=== PATIENT | male | born 1935 | race Caucasian/White ===

== ENCOUNTER 2022-11-11 11:04 | Emergency (ER) | payer MEDICARE, OTHER, SELFPAY ==
--- NOTE | ~2022-11-11 | CT_ITS ---
EXAMINATION: CT HEAD W/O IV CONTRAST CT FACIAL BONES WITHOUT IV CONTRAST CT CERVICAL SPINE W/O IV CONTRAST CLINICAL INFORMATION: History of fall. Evaluate for bleed. Injury. Evaluate for fracture. COMPARISON: None TECHNIQUE: Head - Contiguous axial imaging of the head was performed from the skull base to the vertex without the administration of intravenous contrast, and axial images are reconstructed at 2 mm and 5 mm slice thickness. Cervical spine and facial bones - Volumetric, helical CT acquisitions of the cervical spine and facial bones obtained without contrast; in addition to the standard set of axial images, multiplanar reformatted images were provided in the coronal and sagittal imaging planes. This CT examination was performed using dose optimization techniques as appropriate, variously including the following: *Automated exposure control *Adjustment of mA and/or kV according to patient size (this includes techniques or standardized protocols for targeted exams where dose is matched to indication/reason for exam; i.e. extremities or head) *Use of iterative reconstruction technique DLP: 1347 mGy-cm (total) FINDINGS: HEAD: No evidence of intracranial hemorrhage, major vascular territory infarction, focal mass effect or midline shift. Muro to white matter differentiation is preserved. Gjer-dt-twjcgrnb parenchymal volume loss with commensurate prominence of ventricles and sulci. Mild patchy hypoattenuation within deep white matter is compatible with sequela of mild microangiopathy. There is atherosclerotic calcification of cavernous carotid arteries. No hydrocephalus or extra-axial fluid collections. There appears to be an old small lacunar infarct of the superior right cerebellar hemisphere. No evidence of calvarial fracture. Incidentally noted is opacification of some of the bilateral mastoid air cells. FACIAL BONES: The globes and orbital celis, including lamina papyracea, are intact. Prior ocular lens extractions. The orbital apex, optic canals, and retrobulbar fat planes are normal. The maxilla, mandible and temporomandibular joints are intact. Nasal bones, pterygoid plates and zygomatic arches have an intact appearance. The paranasal sinuses are well-aerated and the ostiomeatal units are patent. Incidentally noted is a left-sided nasal septal deviation with a septal spur that encroaches on the middle meatus. No air-fluid levels in the paranasal sinuses. CERVICAL SPINE: The skull base, C1 and C2 lateral masses and atlantodental articulation are intact. Calcium deposition (likely calcium pyrophosphate dihydrate crystal deposition) along the transverse ligament posterior to the dens. No dens fracture. The vertebral body heights and alignment are maintained. No fractures in the anterior or posterior elements. No prevertebral soft tissue edema or paraspinal hematoma. Multilevel, generally moderate discovertebral degenerative change of the cervical spine. Prior discectomy and anterior fusion at C5-C6 and C6-C7. The anterior fusion plate and fixation screws are well-positioned. No hardware loosening. Bone graft is well incorporated into the endplates at C5-C6 and C6-C7. Findings include multilevel uncovertebral joint hypertrophy with osteophytes causing severe bilateral neural foraminal stenosis at C3-C4. There is moderate bilateral neural foraminal stenosis at C4-C5. At C7-T1, neural foraminal stenosis is bjrjqwhk-tz-awcnen on the right and mild on the left. The partially visualized thyroid gland is mildly atrophied and heterogeneous. 1 cm hypodense nodules present in the left thyroid lobe. No thyroid imaging follow-up is recommended for incidentally detected nodule of this size. CT/CT cervical spine wo IV con IMPRESSION: * No intracranial hemorrhage or other acute intracranial pathology. * No fracture or malalignment in the degenerated cervical spine. No evidence of postoperative complications from remote anterior discectomy and anterior spinal fusion at C5-C7. No hardware loosening. * The horizontal and vertical buttresses of the face are intact. No significant imaging findings within the maxillofacial region.
[2022-11-11 11:07] VITALS: BP 153/57; PULSE 48; RESP 20; TEMP 36.7; O2SAT 96; BMI 22.0
--- NOTE | 2022-11-11 11:33 | PC.NURSE ---
PT IS AWAKE AND ALERT WITH BILATERAL KNEE ABRASIONS THAT ARE BEING CLEANED WITH NS. HE ALSO HAS A FEW FACIAL ABRASIONS. AWAITING CT SCAN
[2022-11-11] MEDS: Diphth,Pertus(ACell),Tet Adult 0.5 ML SYRINGE IM (12:09)
--- NOTE | 2022-11-11 13:15 | PC.NURSE ---
DSD IN PLACE, PT IS UP AND AMBULATORY IN ED. AWAITING PROVIDER TO REVIEW CT RESULTS
--- NOTE | 2022-11-24 19:05 | ED.FALL ---
HPI - Fall General Chief Complaint: Fall Stated Complaint: fall, face bruised Time Seen by Provider: 11/11/22 11:16 History of Present Illness HPI Narrative: Patient complains of trip and fall at home where he scraped his face his hands and his knees, it was a simple trip and fall, he did not faint or feel faint he had no loss of consciousness he has no headache he has no significant neck pain no numbness weakness or tingling no confusion no syncope no presyncope no dizziness prior or after the fall, he did scrape his hands and legs but is able to move them He is on blood thinner Eliquis Related Data Allergies Allergy/AdvReac Type Severity Reaction Status Date / Time No Known Allergies Allergy Verified 11/11/22 11:26 [facility] Past Medical History Source: nursing notes reviewed Social History Social History Advance Directives: Yes Advance Directives Information Provided: Yes Advance Directives on File: No Physical Exam Vital Signs: Vital Signs: Last Vital Signs Temp 98.1 F 11/11/22 11:07 Pulse 48 L 11/11/22 11:07 Resp 20 11/11/22 11:07 BP 153/57 H 11/11/22 11:07 Pulse Ox 96 11/11/22 11:07 O2 Del Method Room Air 11/11/22 11:07 BMI result Body Mass Index 22.0 General appearance comfortable cooperative no acute distress Head has no hematoma or abnormality on the scalp, there is no raccoon eyes no Nguyen signs no hemotympanum The face has multiple abrasions but no laceration that needs suturing no significant tenderness to the bones The eyes pupils equal round reactive to light extraocular motions are full and intact The neck was supple but there is very minor tenderness in the back of the neck Chest wall nontender Chest clear to auscultation bilateral Heart no murmur Abdomen soft nontender Extremities full range of motion x4 and there were superficial abrasions on the hands and the knees, but there was good range of motion in all joints any was able to ambulate and uses arms normally Interaction comprehension and expression were normal,, cranial nerves 2-12 intact as tested, motor 5/5 x4, sensation intact and symmetrical, finger to nose was normal Course Course Course Narrative: CT of head face and cervical spine did not show any bleed or facial fracture or cervical acute injury, patient was given a tetanus shot and was otherwise well appearing despite his abrasions which were cleaned and bandage and he was discharged Medications Administered Discontinued Medications Generic Name Dose Route Start Last Admin Trade Name Freq PRN Reason Stop Dose Admin Diphtheria/Tetanus/Acell Pertussis 0.5 ml 11/11/22 11:26 11/11/22 12:09 Diphth,Pertus(Acell),Tet Adult 0.5 Ml Syringe IM 11/11/22 11:27 0.5 ml .ONCE ONE Administration Discharge Plan Discharge Clinical Impression: Abrasion Patient Disposition: Home, Self-Care Additional Instructions: The CT scans of head neck and facial bones were all normal We gave you a tetanus shot The abrasions were not deep and did not require suturing You can take Eliquis normally, if any of the abrasions whose blood just apply pressure Return any time any worse condition or any concerns Interventions: ED Discharge Assessment Last Done: 11/11/22 13:31 Discharge Date/Time: 11/11/22 13:45
== END 2022-11-11 13:45 | disposition home or self-care (01) ==
PROVIDERS: Emergency Provider Emergency Medicine
DX: S00.81XA Abrasion of other part of head, initial encounter (principal); S80.212A Abrasion, left knee, initial encounter; S80.211A Abrasion, right knee, initial encounter; W01.0XXA Fall on same level from slipping, tripping and stumbling without subsequent striking against object, initial encounter; Y93.9 Activity, unspecified; Y92.039 Unspecified place in apartment as the place of occurrence of the external cause; Y99.9 Unspecified external cause status
CPT/HCPCS: 70450; 70486; 72125; 90471; 90715; 99282; 99284

== ENCOUNTER 2023-03-02 15:05 | Emergency (ER) | payer MEDICARE, OTHER, SELFPAY ==
--- NOTE | ~2023-03-02 | CT_ITS ---
EXAMINATION: CT ANGIOGRAM NECK WITH CONTRAST CT ANGIOGRAM BRAIN WITH CONTRAST CLINICAL INFORMATION: Unilateral neck pain. Concern for dissection. On Eliquis. COMPARISON: None. TECHNIQUE: Test bolus sequences followed by intravenous administration 100 mL of Omnipaque 350. Helical imaging was performed in the axial plane from the thoracic inlet to the skull vertex. Delayed postcontrast imaging of the head was also performed. The data was processed at the lead technologist in cytogenetics workstation for generation of MIP sequences. Angled MIPs and volume rendered reformatted images were also generated at an offline 3D workstation. Stenoses are assessed in accordance with NASCET criteria unless otherwise indicated. This CT examination was performed using dose optimization techniques as appropriate, variously including the following: *Automated exposure control *Adjustment of mA and/or kV according to patient size (this includes techniques or standardized protocols for targeted exams where dose is matched to indication/reason for exam; i.e. extremities or head) *Use of iterative reconstruction technique DLP: 2413 mGy-cm FINDINGS: Head CT: There is no intracranial hemorrhage, large acute infarction, or mass lesion. The ventricles are normal in size and configuration without evidence of hydrocephalus. There is no abnormal enhancement. A small chronic lacunar infarct is seen within the right cerebellum. Patchy hypoattenuation is seen in the white matter, typical of chronic microangiopathy. The dural venous sinuses are normally opacified. The visualized paranasal sinuses and mastoid air cells are clear. Neck CTA: The aortic arch demonstrates atheromatous calcifications but is patent. The great vessel origins are patent. Both common carotid arteries are patent. Mild atheromatous changes are seen at both carotid bifurcations without significant stenosis. Both cervical ICAs are patent. The bilateral vertebral arteries are patent. Head CTA: No large vessel occlusion is seen. There is mild atheromatous change along the intradural vertebral arteries without stenosis. Basilar artery is patent. There is a normal right posterior indicating artery which is patent. Both french pastry cook are patent. Intracranial ICAs are patent the right A1 segment is hypoplastic but patent. The ACAs and MCAs are patent with symmetric collaterals. No aneurysm is seen. Non-vascular findings: Anterior cervical discectomy and fusion changes are seen at C5-C7 with solid interbody fusion demonstrated. Multilevel degenerative spondylosis is also noted. CT/CT angio head neck IMPRESSION: CT HEAD: No intracranial hemorrhage or large acute infarction. 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 CTA NECK: No hemodynamically significant stenosis in the major arteries of the neck. No dissection. CTA HEAD: No large vessel occlusion or significant stenosis within the intracranial circulation.
--- NOTE | 2023-03-02 15:13 | ED.GENADULT ---
HPI - General Adult General Chief complaint: Neck Pain/Injury Stated complaint: neck pain Time Seen by Provider: 03/02/23 16:23 Source: patient Mode of arrival: ambulatory Limitations: no limitations History of Present Illness HPI narrative: Patient is an 87-year-old male who presents to the emergency department for evaluation of Atraumatic neck pain. He states he has been experiencing midline posterior neck pain for the past week. He has had a history of similar pain in the past, for which he saw a chiropractor with significant improvement. He saw a chiropractor yesterday, he was advised at that time he has a fusion of C5-C7, reports that this surgery occurred more than 5 years ago due to pain in the left arm he however was unaware that it was a fusion he states I thought they were just going to she part of it off . By this morning he noticed a slight increase in his pain it has become progressively worse throughout the day. Pain is made worse with movement of the head/neck. Has associated pain to the paraspinal region bilaterally however the right is worse than the left. He denies headache, fevers, chills, numbness tingling or weakness of the extremities, saddle anesthesia, bladder bowel incontinence, vision changes, chest pain, shortness of breath. Related Data Home Medications Medication Instructions Recorded Confirmed amlodipine 5 mg-benazepril 10 mg 1 cap PO DAILY 03/02/23 03/02/23 capsule apixaban 5 mg tablet (Eliquis) 5 mg PO BID 03/02/23 03/02/23 hydrochlorothiazide 25 mg tablet 25 mg PO DAILY 03/02/23 03/02/23 Previous Rx's Medication Instructions Recorded cyclobenzaprine 5 mg tablet 5 mg PO BEDTIME PRN muscle spasm 03/02/23 #10 tabs Allergies Allergy/AdvReac Type Severity Reaction Status Date / Time No Known Allergies Allergy Verified 11/11/22 11:26 Review of Systems Review of Systems: Yes all other systems are reviewed and are negative PMFSH Past Medical History Attestation statement: The following information was validated with the patient. Source: old records reviewed Social History Social History Alcohol intake: current Alcohol intake frequency: holidays/special occasions only Smoked in Last 30 Days: No Use of substances other than those prescribed or required for medical reasons: No Advance Directives: No Advance Directives Information Provided: Yes Physical Exam ED Vital Signs: Vital Signs - 24 hr 03/02/23 15:14 03/02/23 17:04 Temperature 98.2 F 98.1 F Pulse Rate 56 58 Respiratory Rate 18 16 Blood Pressure 136/62 149/71 H Pulse Oximetry 96 97 Oxygen Delivery Method Room Air Room Air BMI result Body Mass Index 23.4 Appearance: Alert.?Oriented to person, place and time. No acute distress.?Normal affect. Eyes: Pupils equal, round and reactive to light.? ENT: Pharynx normal.?? Neck: Normal inspection.? Neck supple.? Midline cervical spine tenderness? C4-C7 without palpable step-off or deformities. Palpable bilateral paraspinal muscle tenderness CVS: Heart sounds normal. Normal heart rate and rhythm.? Pulses normal.?? Respiratory: No respiratory distress.? Lung sounds clear to auscultation bilaterally?? Abdomen: Soft and non-tender. Normoactive bowel sounds. Skin: Skin warm and dry.? Normal skin color.? Extremities: No lower extremity edema.? Neuro: Moves all extremities spontaneously. Sensation intact bilaterally. CN II-XII intact. No focal neuro deficits. Ambulates with normal steady gait. Course Course Course Narrative: This is a rapid medical exam: Additional HPI, ROS, PE not included below will be deferred to primary provider. Patient is an 87-year-old male on Eliquis presenting to the emergency department with complaint of neck pain for one week. Went to the chiropractor yesterday and states pain is infinitely worse since. States chiro took x-rays prior to treatment, told patient C5, 6, 7 were fused. States he has pain bilaterally but pain is now worse on the right since yesterday's appointment. Denies saddle anesthesia, bowel or bladder incontinence. Denies any headaches or visual changes. States pain is worse with movement. Plan: CTA head and neck Reevaluation(s) Reevaluation #1: elevated troponin at 67.2, no chest pain, Dyspnea, shortness of breath, no anterior neck pain, plan to obtain EKG And delta troponin. Time: 17:48 Reevaluation #2: EKG reveals atrial fibrillation, no ST elevation, no ST depression, T-wave inversion in lead III and aVF., Pending delta troponin CT of the head with no acute intracranial abnormalities. CT angio of the neck without evidence of significant stenosis or dissection. there is notation of multi level degenerative changes, which is likely attributing to his pain. He expresses improvement in pain with cyclobenzaprine, but is not fully resolved. Time: 20:03 Reevaluation #3: Delta troponin of 47.9. I have reviewed this case with cardiology; Dr. El; clinically does not appear to be ACS, cardiology in agreement, advises outpatient follow-up. Discussed with patient worrisome signs and symptoms that would warrant re-evaluation in the emergency department. I will send prescription for the cyclobenzaprine to his pharmacy and recommend outpatient follow-up with his primary care provider. All questions were answered. Stable for discharge. Time: 20:50 Medications Administered Discontinued Medications Generic Name Dose Route Start Last Admin Trade Name Frejyacee PRN Reason Stop Dose Admin Cyclobenzaprine HCl 5 mg 03/02/23 17:25 03/02/23 18:05 Cyclobenzaprine Hcl 5 Mg Tablet PO 03/02/23 17:26 5 mg ONCE ONE Administration Iohexol 100 ml 03/02/23 18:19 03/02/23 18:20 Iohexol 350 Mg/Ml 100 Ml Infus..Btl IV 03/02/23 18:20 70 ml ONCE ONE Administration Medical Decision Making Medical Decision Making [facility] Narrative: patient is an 87-year-old male Past medical history of hypertension, atrial fibrillation on Eliquis, presents emergency department for evaluation of midline cervical spine pain with progressive worsening after chiropractic visit yesterday. no red flag signs; return at trauma, neurologic symptoms, anterior neck pain, personal history of cancer, recent unexplained weight loss, immune suppression, IVDA. plan to obtain serum labs, CT angio head and neck. Differential Diagnosis Differential Diagnoses: The differential diagnosis associated with the presentation includes ( Cervical spine fracture, compression fracture, Carotid artery dissection, less likely cervical cord compression/ diskitis/ spinal abscess/ malignancy. no anterior neck pain, less likely to be non spinal etiology such as angina/ACS.) Lab Data [facility] Lab Attestation statement: I reviewed the patient's lab results. CBC is without leukocytosis, there is a mild normocytic anemia and thrombocytopenia. CMP is overall unremarkable, elevated BUN at 24, Troponin 67.2, 03/02/23 16:47 03/02/23 16:47 Labs: Lab Results 09/21/23 09/21/23 Range/Units 16:47 20:08 WBC 7.0 (4.8-10.8) X10*3/uL RBC 4.36 L (4.60-5.80) X10*6/uL Hgb 13.3 L (14.0-18.0) g/dl Hct 39.9 L (42.0-52.0) % MCV 91.5 (80.0-98.0) fL MCH 30.5 (27.0-33.0) pg MCHC 33.3 (31.0-36.0) g/dl RDW 14.7 (11.0-16.0) % Plt Count 155 L (160-400) X10*3/uL MPV 11.0 (9.4-12.4) fL Immature Gran % (Auto) 0.4 (0.0-0.4) % Neut % (Auto) 80.2 H (45-73) % Lymph % (Auto) 8.5 L (20-40) % Stanton % (Auto) 8.8 (2-11) % Eos % (Auto) 1.7 (0-4) % Baso % (Auto) 0.4 (0-2) % Lymph # (Auto) 0.6 L (1.2-4.9) X10*3/uL Stanton # (Auto) 0.6 (0.1-1.2) X10*3/uL Eos # (Auto) 0.1 (0.0-0.4) X10*3/uL Baso # (Auto) 0.0 (0.0-0.2) X10*3/uL Abs Immat Gran (auto) 0.03 (0.00-0.03) X10*3/uL Absolute Neuts (auto) 5.6 (2.0-8.3) x10*3/uL Absolute Nucleated RBC 0.000 (0.0-0.012) X10*3/uL Nucleated RBC % (auto) 0.0 (0.0-0.2) /100WBC PT 15.7 H (11.1-13.3) SEC INR 1.3 H (0.9-1.1) Sodium 140 (135-145) mmol/L Potassium 4.7 (3.3-5.1) mmol/L Chloride 102 (96-108) mmol/L Carbon Dioxide 28 (22-29) mmol/L Anion Gap 15 (12-20) BUN 24 H (9-16) mg/dL Creatinine 1.18 (0.5-1.4) mg/dL Estim Creat Clear Calc 43.2 Estimated GFR 58 Random Glucose 106 (60-115) mg/dL Calcium 9.7 (8.4-10.2) mg/dL Magnesium 2.2 (1.6-2.6) mg/dL Total Bilirubin 0.9 (0.0-1.0) mg/dL AST 36 (5-37) U/L ALT 24 (0-40) U/L Alkaline Phosphatase 97 (39-117) U/L Troponin I High Sens 67.2 H 47.9 H (<3.5-35.0) ng/L Total Protein 6.9 (6.5-8.0) g/dL Albumin 4.1 (3.5-5.0) g/dL Lipase 12 (8-78) U/L Independent Interpretation I performed an independent interpretation of an: EKG ( as per course narrative) Radiology Impression Discussion of test interpretation with radiology: I have reviewed the radiologist's reading. Radiologist Impression: CT/CT angio head neck IMPRESSION: CT HEAD: No intracranial hemorrhage or large acute infarction. 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 CTA NECK: No hemodynamically significant stenosis in the major arteries of the neck. No dissection. CTA HEAD: No large vessel occlusion or significant stenosis within the intracranial circulation. Discharge Plan Discharge Clinical Impression: Cervical spondylosis, Elevated troponin level Patient Disposition: Home, Self-Care Instructions: Neck Pain (ED) Additional Instructions: As discussed, the CT scan does show evidence of arthritis type changes in your neck. It is important that you follow-up with your primary care provider. You can take Tylenol 500 mg, 2 tablets (1,000mg) every 4-6 hours as needed for pain, but not to exceed 3 doses daily (3,000mg). I have sent a prescription for cyclobenzaprine, the muscle relaxer to your pharmacy as well. This medication can make you drowsy. You should not drive while taking this medication.? As discussed, your blood markers; Troponin which can detect damage to the heart muscle were elevated today. I discussed this with our construction carpenters helper in review of your EKG in the reason that you came to the emergency department today. At this time it does not appear as though you are having any heart attack, or that your current pain is related to your heart. Please contact your construction carpenters helper to arrange for a follow-up visit for further evaluation. If you are unable to make contact with their office I have also provided the contact information for our construction carpenters helper office. If you develop chest pain, shortness of breath, difficulty breathing, or any new/ worsening symptoms or concerns you may return back to the emergency department. Prescriptions: New cyclobenzaprine 5 mg tablet 5 mg PO BEDTIME PRN (Reason: muscle spasm) Qty: 10 0RF No Action amlodipine-benazepril 5-10 mg capsule 1 cap PO DAILY hydrochlorothiazide 25 mg tablet 25 mg PO DAILY Eliquis 5 mg tablet 5 mg PO BID Referrals: Luis El MD [Physician] -
[2023-03-02 15:14] VITALS: BP 136/62; PULSE 56; RESP 18; TEMP 36.8; O2SAT 96; BMI 23.4
[2023-03-02 16:52] LABS: MANUAL DIFF FLAG NO
[2023-03-02 16:53] LABS: Basophils Percent Auto 0.4 % (0-2); Eosinophils Absolute Auto 0.1 X10*3/uL (0.0-0.4); Eosinophils Percent Auto 1.7 % (0-4); Hematocrit 39.9 % (42.0-52.0); Hemoglobin 13.3 g/dl (14.0-18.0); Imm Gran Abs Auto 0.03 X10*3/uL (0.00-0.03); Imm Gran Pct Auto 0.4 % (0.0-0.4); Lymphocytes Absolute Auto 0.6 X10*3/uL (1.2-4.9); Lymphocytes Percent Auto 8.5 % (20-40); Mean Corpuscular HGB Conc 33.3 g/dl (31.0-36.0); Mean Corpuscular Hemoglobin 30.5 pg (27.0-33.0); Mean Corpuscular Volume 91.5 fL (80.0-98.0); Monocytes Absolute Auto 0.6 X10*3/uL (0.1-1.2); Monocytes Percent Auto 8.8 % (2-11); Neutrophils Absolute Auto 5.6 x10*3/uL (2.0-8.3); Neutrophils Percent Auto 80.2 % (45-73); Platelet Count 155 X10*3/uL (160-400); Red Blood Count 4.36 X10*6/uL (4.60-5.80); Red Cell Distribution Width 14.7 % (11.0-16.0)
--- NOTE | 2023-03-02 16:53 | PC.NURSE ---
pt reports taking 2 Tylenol (pt unsure of dose) at 2pm for 10/10 pain, now at 8/10 only reaching 10/10 with any turn of the head.
[2023-03-02 17:04] VITALS: BP 149/71; PULSE 58; RESP 16; TEMP 36.7; O2SAT 97
[2023-03-02 17:06] LABS: Alanine Aminotransferase 24 U/L (0-40); Albumin Level 4.1 g/dL (3.5-5.0); Alkaline Phosphatase 97 U/L (39-117); Anion Gap 15 (12-20); Aspartate Amino Transferase 36 U/L (5-37); Bilirubin Total 0.9 mg/dL (0.0-1.0); Blood Urea Nitrogen 24 mg/dL (9-16); Calcium 9.7 mg/dL (8.4-10.2); Carbon Dioxide 28 mmol/L (22-29); Chloride 102 mmol/L (96-108); Creatinine Clr Calc Pharmacy 43.2; Estimated Glomerular Filt Rate 58; Glucose Random 106 mg/dL (60-115); Lipase 12 U/L (8-78); Magnesium 2.2 mg/dL (1.6-2.6); Potassium 4.7 mmol/L (3.3-5.1); Sodium 140 mmol/L (135-145); Total Protein 6.9 g/dL (6.5-8.0)
[2023-03-02 17:13] LABS: Troponin-I High Sensitivity 67.2 ng/L (<3.5-35.0)
[2023-03-02 17:14] LABS: INTERNATIONAL NORM RATIO 1.3 (0.9-1.1); Prothrombin Time 15.7 SEC (11.1-13.3)
--- NOTE | 2023-03-02 17:48 | ECG_ITS ---
Test Reason : NECK PAIN Blood Pressure : / mmHG Vent. Rate : 050 BPM Atrial Rate : 000 BPM P-R Int : 000 ms QRS Dur : 096 ms QT Int : 470 ms P-R-T Axes : 000 092 -21 degrees QTc Int : 428 ms Atrial fibrillation with slow ventricular response Rightward axis Incomplete right bundle branch block Anteroseptal infarct , age undetermined T-wave inversion in Inferior leads Abnormal ECG No previous ECGs available Referred By: Niecy Marquez Electronically Signed By:SHELLIE BONDS
[2023-03-02] MEDS: Cyclobenzaprine HCl 5 MG TABLET PO (18:05)
[2023-03-02] MEDS: iohexoL 350 MG/ML 100 ML INFUS..BTL IV (18:20)
[2023-03-02 20:38] LABS: Troponin-I High Sensitivity 47.9 ng/L (<3.5-35.0)
[2023-03-02 21:44] VITALS: BP 152/76; PULSE 66; RESP 17; O2SAT 98
== END 2023-03-02 21:45 | disposition home or self-care (01) ==
PROVIDERS: Nurse Practitioner Family; Emergency Provider Emergency Medicine
DX: M47.812 Spondylosis without myelopathy or radiculopathy, cervical region (principal); R77.8 Other specified abnormalities of plasma proteins; I10 Essential (primary) hypertension; I48.91 Unspecified atrial fibrillation; Z79.899 Other long term (current) drug therapy; Z79.01 Long term (current) use of anticoagulants
CPT/HCPCS: 36415; 70496; 70498; 80053; 83690; 83735; 84484; 85025; 85610; 93005; 99284; 99285; Q9967

== ENCOUNTER 2023-09-30 14:10 | Inpatient (IN) | payer MEDICARE, SELFPAY ==
[2023-09-30] VITALS (7 sets, daily range): BP systolic 101–117; BP diastolic 57–65; PULSE 60; RESP 15–26; TEMP 36.3–36.5; O2SAT 93–96; BMI 22.0; BMI 21.4
--- NOTE | ~2023-09-30 | XR_ITS ---
EXAMINATION: XR CHEST CLINICAL INFORMATION: Shortness of breath COMPARISON: None available. TECHNIQUE: Frontal view of the chest was obtained. FINDINGS: The heart and mediastinal borders are normal. Consolidation. No pleural effusion. No acute osseous abnormality. XR/XR chest 1V IMPRESSION: Unremarkable examination.
--- NOTE | 2023-09-30 14:52 | ECG_ITS ---
Test Reason : DYSPENA Blood Pressure : / mmHG Vent. Rate : 059 BPM Atrial Rate : 267 BPM P-R Int : 000 ms QRS Dur : 142 ms QT Int : 470 ms P-R-T Axes : 000 -45 -88 degrees QTc Int : 465 ms Ventricular-paced rhythm underlying atrial fibrillation vs flutter Abnormal ECG When compared with ECG of 02-MAR-2023 18:44, rhythm change Referred By: Sam Link Electronically Signed By:ANNABELLA LEO
--- NOTE | 2023-09-30 14:56 | ED.SOB ---
HPI - SOB/Dyspnea General Chief Complaint: Dyspnea Stated Complaint: Low oxygen levels Time Seen by Provider: 09/30/23 14:42 Source: patient and family (Spouse) Mode of arrival: ambulatory Limitations: no limitations History of Present Illness HPI Narrative: 87 year old male brought in by his family for SOB and becoming hypoxic with ambulation to 85% on air. Pertinent history of smoking quit 1983, history of COPD recently was admitted to [facility] for acute hypoxic respiratory failure, and viral respiratory infection (H MPV), AFib on Eliquis, HTN, V-tach, patient recently had AICD placed at [facility] last week as per patient and family. Daughter who was also a nurse found him hypoxic after she ambulated him in the house and short of breath, no fever, no chills 2 weeks of productive cough of dark sputum. Related Data Home Medications ?Medication ?Instructions ?Recorded ?Confirmed amlodipine 5 mg-benazepril 10 mg 1 cap PO DAILY 03/02/23 03/02/23 capsule apixaban 5 mg tablet (Eliquis) 5 mg PO BID 03/02/23 03/02/23 hydrochlorothiazide 25 mg tablet 25 mg PO DAILY 03/02/23 03/02/23 Previous Rx's ?Medication ?Instructions ?Recorded cyclobenzaprine 5 mg tablet 5 mg PO BEDTIME PRN muscle spasm 03/02/23 #10 tabs Allergies Allergy/AdvReac Type Severity Reaction Status Date / Time No Known Allergies Allergy Verified 09/30/23 14:28 Review of Systems Review of Systems: All other systems are reviewed and are negative Constitutional: Reports as per HPI and Reports no additional constitutional complaints Eyes: Reports as per HPI and Reports no additional eye complaints Reports system reviewed and no additional complaints, except as documented Cardiovascular: Reports as per HPI and Reports no additional cardiovascular complaints Respiratory: Reports as per HPI and Reports no additional respiratory complaints Gastrointestinal: Reports as per HPI and Reports no additional gastrointestinal complaints Genitourinary: Reports no additional female genitourinary complaints Musculoskeletal: Reports no additional musculoskeletal complaints Skin/Breast: Reports system reviewed and no additional complaints, except as docu Psychiatric: Reports no additional psychiatric complaints Endocrine: Reports no additional endocrine complaints Hematologic/Lymphatic: Reports no additional hematologic/lymphatic complaints Allergic/Immunologic: Reports no additional allergic/immunologic complaints Reports system reviewed and no additional complaints, except as documented and Reports Abnormal speech present PMFSH Social History Social History Alcohol intake: current Alcohol intake frequency: holidays/special occasions only Smoked in Last 30 Days: No Use of substances other than those prescribed or required for medical reasons: No Advance Directives: Yes Advance Directives on File: Yes Advance Directives Date on File: 09/30/23 Physical Exam Vital Signs: Vital Signs: Last Vital Signs Temp 97.7 F 09/30/23 15:40 Pulse 60 09/30/23 15:40 Resp 20 09/30/23 15:40 BP 108/57 L 09/30/23 15:40 Pulse Ox 95 09/30/23 15:40 O2 Del Method Nasal Cannula 09/30/23 15:40 O2 Flow Rate 2 09/30/23 15:40 Oxygen Flow Rate 2 09/30/23 14:23 BMI result Body Mass Index 22.0 Vital signs have been reviewed and appear to be correct. Blood pressure elevated. Heart rate normal. Respiratory rate normal. Temperature normal. Oxygen saturation normal. Appearance: Alert. Oriented X3. No acute distress. Head: Normal external exam. Normocephalic. Atraumatic. No Nguyen signs noted. No raccoon eyes noted Eyes: PERRLA. EOMI. Conjunctiva and sclera normal. Eyelids normal. ENT: TM's Normal. Pharynx normal. Uvula midline. Moist mucous membranes. No trismus noted. No drooling noted. No muffled voice noted. Neck: Normal inspection. Neck supple. FROM. No adenopathy. Thyroid Normal. No meningeal signs. No neck mass noted. CVS: Normal heart rate and rhythm. Heart sound normal. No murmurs noted. Pulses normal throughout. Respiratory: No respiratory distress. Painless inspiration. Breath sounds normal. Diffuse mild expiratory wheezing with prolonged expiration, Chest nontender. No accessory muscle usage noted or decreased air movement noted. Abdomen: Soft and nontender. Bowel sounds normal in all 4 quadrants. No distention noted. No organomegaly noted. No visible injury noted. Back: No CVA tenderness. Full range of motion noted. Skin: Skin warm and dry. Normal skin color. Normal skin turgor. No rashes/lesions/lacerations noted. Extremities: No lower extremity edema. Extremities exhibit normal range of motion. Extremities nontender. Neuro: Oriented X 3. Cranial nerve exam: II-XII are grossly intact No motor deficit. No sensory deficit. Reflexes normal. Course Reevaluation(s) Reevaluation #1: 87-year-old male came in for evaluation of exertional dyspnea and shortness of breath, patient had a recent hospitalization at [facility] reportedly by the family he had pacemaker implanted last week, patient has no chest pain with history of chronic troponin elevation. 1. Patient is been stable with nasal cannula 2 L of oxygen. 2. Received bronchodilator, Solu-Medrol, magnesium and empirical dose of doxycycline. 3. Chronic elevation of troponin with nondiagnostic paced EKG, patient also recently have a pacemaker implanted which may contribute to high troponin will repeat troponin. Time: 16:20 Medications Administered Generic Name Dose Route Start Last Admin Trade Name Freq PRN Reason Stop Dose Admin Magnesium Sulfate 2 gm in 50 mls @ 25 mls/hr 09/30/23 14:52 09/30/23 15:26 Magnesium Sulfate/H2o IV 09/30/23 16:51 25 mls/hr ONCE ONE Administration Discontinued Medications Generic Name Dose Route Start Last Admin Trade Name Freq PRN Reason Stop Dose Admin Albuterol Sulfate 2.5 mg/ 0 mg 09/30/23 15:11 09/30/23 15:15 Albuterol/Ipratropium 3 ml INHALE 09/30/23 15:12 5 dose ONCE ONE Administration Methylprednisolone Sodium Succinate 125 mg 09/30/23 14:52 09/30/23 15:26 Methylprednisolone Sod Succ 125 Mg/2 Ml Vial IVPUSH 09/30/23 14:53 125 mg ONCE ONE Administration Medical Decision Making Differential Diagnosis Differential Diagnoses: The differential diagnosis associated with the presentation includes (COPD exacerbation, pneumonia, pneumothorax, pleural effusion, CHF, electrolyte derangement, severe anemia.) Admission/Observation Consideration of admission/observation: Escalation of care including admission/observation considered Consult Healthcare Provider Management of the patient was discussed with: Hospitalist (Annette) Lab Data MDM Lab Attestation statement: I reviewed the patient's lab results. 09/30/23 15:17 09/30/23 15:17 Labs: Lab Results 09/30/23 09/30/23 Range/Units 15:17 15:19 WBC 8.7 (4.8-10.8) X10*3/uL RBC 4.91 (4.60-5.80) X10*6/uL Hgb 14.8 (14.0-18.0) g/dl Hct 43.8 (42.0-52.0) % MCV 89.2 (80.0-98.0) fL MCH 30.1 (27.0-33.0) pg MCHC 33.8 (31.0-36.0) g/dl RDW 14.5 (11.0-16.0) % Plt Count 168 (160-400) X10*3/uL MPV 11.5 (9.4-12.4) fL Immature Gran % (Auto) 0.2 (0.0-0.4) % Neut % (Auto) 85.0 H (45-73) % Lymph % (Auto) 6.7 L (20-40) % Bailey % (Auto) 6.5 (2-11) % Eos % (Auto) 1.1 (0-4) % Baso % (Auto) 0.5 (0-2) % Lymph # (Auto) 0.6 L (1.2-4.9) X10*3/uL Bailey # (Auto) 0.6 (0.1-1.2) X10*3/uL Eos # (Auto) 0.1 (0.0-0.4) X10*3/uL Baso # (Auto) 0.0 (0.0-0.2) X10*3/uL Abs Immat Gran (auto) 0.02 (0.00-0.03) X10*3/uL Absolute Neuts (auto) 7.4 (2.0-8.3) x10*3/uL Absolute Nucleated RBC 0.000 (0.0-0.012) X10*3/uL Nucleated RBC % (auto) 0.0 (0.0-0.2) /100WBC PT 19.5 H D (11.1-13.3) SEC INR 1.6 H (0.9-1.1) Sodium 139 (135-145) mmol/L Potassium 4.5 (3.3-5.1) mmol/L Chloride 100 (96-108) mmol/L Carbon Dioxide 31 H (22-29) mmol/L Anion Gap 13 (12-20) BUN 70 H (9-16) mg/dL Creatinine 1.55 H (0.5-1.4) mg/dL Estim Creat Clear Calc 30.5 Estimated GFR 43 Random Glucose 109 (60-115) mg/dL Lactic Acid 1.1 (0.5-2.0) mmol/L Calcium 9.5 (8.4-10.2) mg/dL Total Bilirubin 0.6 (0.0-1.0) mg/dL Direct Bilirubin 0.3 (0.0-0.5) mg/dL AST 49 H (5-37) U/L ALT 29 (0-40) U/L Alkaline Phosphatase 87 (39-117) U/L Troponin I High Sens 83.1 H D (<3.5-35.0) ng/L B-Natriuretic Peptide 208 H (<100) pg/mL Total Protein 7.6 (6.5-8.0) g/dL Albumin 3.7 (3.5-5.0) g/dL Lipase 15 (8-78) U/L Influenza Type A (PCR) NEGATIVE (Negative) Influenza Type B (PCR) NEGATIVE (Negative) RSV RNA Qual (PCR) NEGATIVE (Negative) SARS-CoV-2 RNA (RT-PCR) NEGATIVE (Negative) Independent Interpretation I performed an independent interpretation of an: EKG (Ventricular paced EKG at 60 beats per minutes) and Plain X-Ray (No acute infiltrate) Discharge Plan Discharge Clinical Impression: Acute exacerbation of chronic obstructive airways disease Patient Disposition: Admitted As Inpatient Print Language: Tamazight
[2023-09-30] MEDS: Albuterol Sulfate 2.5 MG, Albuterol/Iprat 2.5/0.5MG 3 ML 3 ML INHALE (15:15)
[2023-09-30] MEDS: methylPREDNISolone Sod Succ 125 MG/2 ML VIAL IVPUSH (15:26)
[2023-09-30] MEDS: Magnesium Sulfate/H2O 2 GM/50 ML PIGGYBACK IV (15:26)
[2023-09-30 15:29] LABS: MANUAL DIFF FLAG NO
[2023-09-30 15:32] LABS: Basophils Percent Auto 0.5 % (0-2); Eosinophils Absolute Auto 0.1 X10*3/uL (0.0-0.4); Eosinophils Percent Auto 1.1 % (0-4); Hematocrit 43.8 % (42.0-52.0); Hemoglobin 14.8 g/dl (14.0-18.0); Imm Gran Abs Auto 0.02 X10*3/uL (0.00-0.03); Imm Gran Pct Auto 0.2 % (0.0-0.4); Lymphocytes Absolute Auto 0.6 X10*3/uL (1.2-4.9); Lymphocytes Percent Auto 6.7 % (20-40); Mean Corpuscular HGB Conc 33.8 g/dl (31.0-36.0); Mean Corpuscular Hemoglobin 30.1 pg (27.0-33.0); Mean Corpuscular Volume 89.2 fL (80.0-98.0); Mean Platelet Volume 11.5 fL (9.4-12.4); Monocytes Absolute Auto 0.6 X10*3/uL (0.1-1.2); Monocytes Percent Auto 6.5 % (2-11); Neutrophils Absolute Auto 7.4 x10*3/uL (2.0-8.3); Platelet Count 168 X10*3/uL (160-400); Red Blood Count 4.91 X10*6/uL (4.60-5.80); Red Cell Distribution Width 14.5 % (11.0-16.0); White Blood Count 8.7 X10*3/uL (4.8-10.8)
[2023-09-30 15:46] LABS: Lactic Acid 1.1 mmol/L (0.5-2.0)
[2023-09-30 15:47] LABS: INTERNATIONAL NORM RATIO 1.6 (0.9-1.1); Prothrombin Time 19.5 SEC (11.1-13.3)
[2023-09-30 15:51] LABS: Troponin-I High Sensitivity 83.1 ng/L (<3.5-35.0)
[2023-09-30 15:57] LABS: B Type Natriuretic Peptide 208 pg/mL (<100)
[2023-09-30 16:06] LABS: Alanine Aminotransferase 29 U/L (0-40); Albumin Level 3.7 g/dL (3.5-5.0); Alkaline Phosphatase 87 U/L (39-117); Anion Gap 13 (12-20); Aspartate Amino Transferase 49 U/L (5-37); Bilirubin Direct 0.3 mg/dL (0.0-0.5); Bilirubin Total 0.6 mg/dL (0.0-1.0); Blood Urea Nitrogen 70 mg/dL (9-16); Calcium 9.5 mg/dL (8.4-10.2); Carbon Dioxide 31 mmol/L (22-29); Chloride 100 mmol/L (96-108); Creatinine Clr Calc Pharmacy 30.5; Estimated Glomerular Filt Rate 43; Glucose Random 109 mg/dL (60-115); Lipase 15 U/L (8-78); Potassium 4.5 mmol/L (3.3-5.1); Sodium 139 mmol/L (135-145); Total Protein 7.6 g/dL (6.5-8.0)
[2023-09-30 16:11] LABS: Influenza A PCR NEGATIVE (Negative); Influenza B PCR NEGATIVE (Negative); Resp Syncy Virus RNA Qual PCR NEGATIVE (Negative); SARS COV2 PCR INHOUSE NEGATIVE (Negative)
[2023-09-30] MEDS: Doxycycline Hyclate 100 MG in 0.9 % Sodium Chloride 250 ML 166.67 MG IV (16:30)
--- NOTE | 2023-09-30 17:28 | P.HPHOSP_ITS ---
History of Present Illness Date of Service: 09/30/23 Chief Complaint: Shortness of breath 87-year-old male with a history of COPD recently admitted to [facility] for hypoxic respiratory failure and viral respiratory infection presents to [place] after daughter ambulated and found sats to be in the mid 80s. During [facility] hospitalization patient was noted to have episodes of V-tach for which AICD was placed without issue. This was in the backdrop of chronic atrial fibrillation on Eliquis. He states he went to [facility] for shortness of breath and essentially was not improved when he was discharged. He states he usually walks 2 miles a day however was unable to walk to the bathroom in his apartment. He presents today with COPD exacerbation for which he will be admitted Review of Systems 2 Review of Systems: Denies chest pain admits shortness of breath with minimal exertion Denies nausea vomiting diarrhea Denies fever chills PMFSH Social History Alcohol intake: current Alcohol intake frequency: holidays/special occasions only Smoked in Last 30 Days: No Use of substances other than those prescribed or required for medical reasons: No Advance Directives: Yes Advance Directives on File: Yes Advance Directives Date on File: 09/30/23 Meds Allergies Allergy/AdvReac Type Severity Reaction Status Date / Time No Known Allergies Allergy Verified 09/30/23 14:28 Active Medications: Current Medications Acetaminophen (Acetaminophen 325 Mg Tablet) 650 mg PO Q6H PRN PRN Reason: Pain, Mild (Pain Scale 1-3) Al Hydroxide/Mg Hydroxide (Magnesium Hydrox/Alum Hydrox 30 Ml Oral.Susp) 30 ml PO Q4H PRN PRN Reason: Heartburn/Nausea Albuterol/Ipratropium (Albuterol/Iprat 2.5/0.5mg 3 Ml Ampul.Neb) 3 ml INHALE Q4H PRN PRN Reason: wheezing Doxycycline Hyclate 100 mg/ (Sodium Chloride) 250 mls @ 166.67 mls/hr IV ONCE ONE Stop: 09/30/23 17:49 Last Admin: 09/30/23 16:30 Dose: 166.67 mls/hr Ceftriaxone Sodium 1 gm/ (Sodium Chloride) 50 mls @ 100 mls/hr IV Q24H [facility] Doxycycline Hyclate 100 mg/ (Sodium Chloride) 250 mls @ 166.67 mls/hr IV Q12H [facility] Methylprednisolone Sodium Succinate (Methylprednisolone Sod Succ 125 Mg/2 Ml Vial) 60 mg IVPUSH Q6H BREANA Ondansetron HCl (Ondansetron Hcl 4 Mg/2 Ml Vial) 4 mg IVPUSH Q8H PRN PRN Reason: Nausea and Vomiting Sodium Chloride (0.9 % Sodium Chloride Flush 3 Ml Syringe) 3 ml IVFLUSH QSHIFT [facility] Home Medications ?Medication ?Instructions ?Recorded ?Confirmed ?Last Taken ?Type amlodipine 5 mg-benazepril 10 mg 1 cap PO DAILY 03/02/23 03/02/23 1 Day Ago History capsule ~03/01/23 apixaban 5 mg tablet (Eliquis) 5 mg PO BID 03/02/23 03/02/23 1 Day Ago History ~03/01/23 hydrochlorothiazide 25 mg tablet 25 mg PO DAILY 03/02/23 03/02/23 1 Day Ago History ~03/01/23 acyclovir 200 mg capsule 200 mg PO 5XD PRN herpes 09/30/23 09/30/23 Unknown History atorvastatin 40 mg tablet 40 mg PO DAILY 09/30/23 Unknown History guaifenesin 1,200 mg tablet, 1,200 mg PO BID PRN Congestion 09/30/23 09/30/23 Unknown History extended release 12 hr (Mucinex) propranolol 60 mg capsule,24 60 mg PO DAILY 09/30/23 Unknown History hr,extended release Physical Exam 2 Vital Signs and Narrative: Vital Signs: Last Vital Signs Temp 97.7 F 09/30/23 15:40 Pulse 60 09/30/23 15:40 Resp 20 09/30/23 15:40 BP 108/57 L 09/30/23 15:40 Pulse Ox 95 09/30/23 15:40 O2 Del Method Nasal Cannula 09/30/23 15:40 O2 Flow Rate 2 09/30/23 15:40 Oxygen Flow Rate 2 09/30/23 14:23 BMI result Body Mass Index 22.0 Const: Other: Awake alert resting quietly in a semi-Contreras's position Resp: Other: Diminished throughout with dense expiratory wheezes and crackles left lower lobe Cardio: Other: No S4; positive S1-S2; no S3 murmurs rubs or gallops GI: Other: Soft nontender nondistended normoactive bowel sounds Extrem: Other: Extremities without edema Results Labs 09/30/23 15:17 09/30/23 15:17 Labs: Laboratory Results - last 24 hr 09/30/23 09/30/23 15:17 15:19 MCV 89.2 MCH 30.1 MCHC 33.8 RDW 14.5 Plt Count 168 MPV 11.5 Immature Gran % (Auto) 0.2 Neut % (Auto) 85.0 H Lymph % (Auto) 6.7 L [place] % (Auto) 6.5 Eos % (Auto) 1.1 Baso % (Auto) 0.5 Lymph # (Auto) 0.6 L [place] # (Auto) 0.6 Eos # (Auto) 0.1 Baso # (Auto) 0.0 Abs Immat Gran (auto) 0.02 Absolute Neuts (auto) 7.4 Absolute Nucleated RBC 0.000 Nucleated RBC % (auto) 0.0 PT 19.5 H D INR 1.6 H Anion Gap 13 Estim Creat Clear Calc 30.5 Estimated GFR 43 Random Glucose 109 Lactic Acid 1.1 Calcium 9.5 Total Bilirubin 0.6 Direct Bilirubin 0.3 AST 49 H ALT 29 Alkaline Phosphatase 87 Troponin I High Sens 83.1 H D B-Natriuretic Peptide 208 H Total Protein 7.6 Albumin 3.7 Lipase 15 Influenza Type A (PCR) NEGATIVE Influenza Type B (PCR) NEGATIVE RSV RNA Qual (PCR) NEGATIVE SARS-CoV-2 RNA (RT-PCR) NEGATIVE Imaging Radiologist's Impressions: Impressions Chest X-Ray 09/30/23 15:00 IMPRESSION: Unremarkable examination. Assessment and Plan (1) Acute exacerbation of chronic obstructive airways disease: Status: Acute (2) Persistent atrial fibrillation: Status: Acute (3) Hypertension: Qualifiers: Hypertension type: primary hypertension Qualified Code(s): I10 - Essential (primary) hypertension Status: Acute Plan 87-year-old male with a history of COPD and atrial fibrillation on Eliquis presents with worsening shortness of breath that initially began 2 weeks ago. Over the 48 hours prior to his admission he states he could not even walk across his apartment to use bathroom. In the emergency room now has an O2 requirement and responded to nebs and therapies he will be admitted for management of COPD exacerbation. 1. Acute exacerbation of COPD -ceftriaxone/doxycycline (1) -pulse dose methylprednisolone -DuoNebs q.4 hours as needed while awake -titrate O2 to maintain sats greater than or equal to 90% 2. Persistent atrial fibrillation (V paced) -acceptable rate control via pacemaker -continue Eliquis b.i.d. 3. Primary hypertension -acceptable control on current therapies -adjust as indicated Full code [place] Patient will require at least 2 midnights of inpatient stay to treat acute exacerbation of COPD with antibiotics IV steroids DuoNebs and supplemental O2. This can not be achieved a lesser acute setting Quality Stroke Does the patient have a stroke diagnosis?: No VTE Prior VTE?: No VTE Risk Level:: Medical - moderate - high VTE Device Contraindication: Treatment Not Indicated VTE Drug Contraindication: N/A - Med Ordered
--- NOTE | 2023-09-30 17:34 | PHA.MEDREC ---
Pharmacy Consult ? Medication Reconciliation Pharmacy has completed the medication reconciliation.
--- NOTE | 2023-09-30 17:48 | MHC.EDTECH ---
1800 rounding done ,vitals taken ,Patient belonging list done ,patient choose to keep his jeans on ,rn aware .
--- NOTE | 2023-09-30 17:54 | PC.NURSE ---
Patient stating he does not take his eliquis unit 8pm, pharmacy notified and will change time of dose
[2023-09-30] MEDS: cefTRIAXone sodium 1 GM in 0.9 % Sodium Chloride 50 ML IV (18:06)
[2023-09-30 18:35] LABS: Troponin-I High Sensitivity 71.8 ng/L (<3.5-35.0)
[2023-09-30 19:26] LABS: Appearance Urine Clear; Color Urine Yellow; Glucose Urine UA Negative (Negative); Leukocyte Esterase Urine Negative (Negative); Nitrite Urine Negative (Negative); PH 5.5 (5.0-9.0); UMIC TRIGGER UACC YES; Urine Blood Negative (Negative); Urine Ketones Negative (Negative); Urine Protein 30 (1+) mg/dL (Neg-Trace)
[2023-09-30 19:33] LABS: Bacteria Urine None Seen (None Seen); RBC Urine 0-2 /HPF (0-2); Squamous Epithelial Cell Urine 0-2 /HPF (0-2); WBC Urine 0-5 /HPF (0-5)
[2023-09-30] MEDS: 0.9 % Sodium Chloride Flush 3 ML SYRINGE IVFLUSH (19:43)
[2023-09-30] MEDS: Apixaban 5 MG TABLET PO (19:43)
[2023-09-30] MEDS: Albuterol/Iprat 2.5/0.5MG 3 ML AMPUL.NEB INHALE (22:34)
[2023-10-01 04:00] VITALS: BP 122/70; PULSE 60; RESP 16; TEMP 36.1; O2SAT 96
[2023-10-01] MEDS: methylPREDNISolone Sod Succ 125 MG/2 ML VIAL 60 MG IVPUSH ×4 (05:05→23:12)
[2023-10-01] MEDS: Doxycycline Hyclate 100 MG in 0.9 % Sodium Chloride 250 ML 166.67 MG IV ×2 (05:06→15:40)
[2023-10-01 06:34] LABS: Hematocrit 40.6 % (42.0-52.0); Hemoglobin 13.5 g/dl (14.0-18.0); Mean Corpuscular HGB Conc 33.3 g/dl (31.0-36.0); Mean Corpuscular Hemoglobin 29.8 pg (27.0-33.0); Mean Corpuscular Volume 89.6 fL (80.0-98.0); Mean Platelet Volume 11.4 fL (9.4-12.4); Platelet Count 149 X10*3/uL (160-400); Red Blood Count 4.53 X10*6/uL (4.60-5.80); Red Cell Distribution Width 14.6 % (11.0-16.0); White Blood Count 6.3 X10*3/uL (4.8-10.8)
[2023-10-01 06:38] LABS: Anion Gap 15 (12-20); Blood Urea Nitrogen 62 mg/dL (9-16); Calcium 8.9 mg/dL (8.4-10.2); Carbon Dioxide 24 mmol/L (22-29); Chloride 104 mmol/L (96-108); Creatinine Clr Calc Pharmacy 36.8; Estimated Glomerular Filt Rate 55; Glucose Random 80 mg/dL (60-115); Potassium 4.7 mmol/L (3.3-5.1); Sodium 138 mmol/L (135-145)
[2023-10-01 07:14] VITALS: BP 125/69; PULSE 61; RESP 18; TEMP 36.2; O2SAT 93
[2023-10-01] MEDS: Lactated Ringers 1,000 ML 100 ML IVCONT ×2 (08:00→23:14)
[2023-10-01] MEDS: 0.9 % Sodium Chloride Flush 3 ML SYRINGE IVFLUSH ×2 (08:00→23:14)
[2023-10-01] MEDS: amLODIPine Besylate 5 MG TABLET PO (13:01)
[2023-10-01] MEDS: Propranolol HCL LA 60 MG CAP.SA.24H PO (13:01)
[2023-10-01] MEDS: hydroCHLOROthiazide 25 MG TABLET PO (13:02)
[2023-10-01] MEDS: Apixaban 5 MG TABLET PO (13:02)
[2023-10-01] MEDS: Atorvastatin Calcium 40 MG TABLET PO (13:02)
[2023-10-01] MEDS: lisinopriL 10 MG TABLET PO (13:02)
--- NOTE | 2023-10-01 14:06 | P.PNIM_ITS ---
Subjective Subjective Date of Service: 10/01/23 Interval History: Markedly improved overnight. Breathing easier although still has an O2 requirement Review of Systems Denies chest pain admits shortness of breath with minimal exertion Denies nausea vomiting diarrhea Denies fever chills Physical Exam 2 Vital Signs: Vital Signs: Last Vital Signs Temp 97.1 F 10/01/23 07:14 Pulse 61 10/01/23 07:14 Resp 18 10/01/23 07:14 BP 125/69 10/01/23 07:14 Pulse Ox 93 10/01/23 07:14 O2 Del Method Nasal Cannula 10/01/23 07:14 O2 Flow Rate 2 10/01/23 07:14 Oxygen Flow Rate 2 09/30/23 14:23 BMI result Body Mass Index 21.4 Const: Other: Awake alert resting quietly in a semi-Contreras's position Resp: Other: Diminished throughout with dense expiratory wheezes and crackles left lower lobe Cardio: Other: No S4; positive S1-S2; no S3 murmurs rubs or gallops GI: Other: Soft nontender nondistended normoactive bowel sounds Extrem: Other: Extremities without edema Objective Data Active Medications Acetaminophen (Acetaminophen 325 Mg Tablet) 650 mg PO Q6H PRN PRN Reason: Pain, Mild (Pain Scale 1-3) Al Hydroxide/Mg Hydroxide (Magnesium Hydrox/Alum Hydrox 30 Ml Oral.Susp) 30 ml PO Q4H PRN PRN Reason: Heartburn/Nausea Albuterol/Ipratropium (Albuterol/Iprat 2.5/0.5mg 3 Ml Ampul.Neb) 3 ml INHALE Q4H PRN PRN Reason: wheezing Last Admin: 09/30/23 22:34 Dose: 3 ml Documented By: GUERLINE Amlodipine Besylate (Amlodipine Besylate 5 Mg Tablet) 5 mg PO DAILY [facility] Last Admin: 10/01/23 13:01 Dose: 5 mg Documented By: MINDA Apixaban (Apixaban 5 Mg Tablet) 5 mg PO BID [facility] Last Admin: 10/01/23 13:02 Dose: 5 mg Documented By: MINDA Atorvastatin Calcium (Atorvastatin Calcium 40 Mg Tablet) 40 mg PO DAILY [facility] Last Admin: 10/01/23 13:02 Dose: 40 mg Documented By: MINDA Guaifenesin (Guaifenesin La 600 Mg Tab.Er.12h) 1,200 mg PO BID PRN PRN Reason: Congestion Hydrochlorothiazide (Hydrochlorothiazide 25 Mg Tablet) 25 mg PO DAILY [facility]; Protocol Last Admin: 10/01/23 13:02 Dose: 25 mg Documented By: MINDA Ceftriaxone Sodium 1 gm/ (Sodium Chloride) 50 mls @ 100 mls/hr IV Q24H [facility] Last Infusion: 09/30/23 18:40 Dose: Infused Documented By: PRINCESS Doxycycline Hyclate 100 mg/ (Sodium Chloride) 250 mls @ 166.67 mls/hr IV Q12H [facility] Last Infusion: 10/01/23 06:39 Dose: Infused Documented By: PRINCESS Lactated Ringer's (Lr) 1,000 mls @ 100 mls/hr IVCONT .Q10H [facility] Last Admin: 10/01/23 08:00 Dose: 100 mls/hr Documented By: ÁNGEL Lisinopril (Lisinopril 10 Mg Tablet) 10 mg PO DAILY [facility] Last Admin: 10/01/23 13:02 Dose: 10 mg Documented By: MINDA Methylprednisolone Sodium Succinate (Methylprednisolone Sod Succ 125 Mg/2 Ml Vial) 60 mg IVPUSH Q6H [facility] Last Admin: 10/01/23 11:32 Dose: 60 mg Documented By: ÁNGEL Ondansetron HCl (Ondansetron Hcl 4 Mg/2 Ml Vial) 4 mg IVPUSH Q8H PRN PRN Reason: Nausea and Vomiting Propranolol HCl (Propranolol Hcl La 60 Mg Cap.Sa.24h) 60 mg PO DAILY [facility]; Protocol Last Admin: 10/01/23 13:01 Dose: 60 mg Documented By: MINDA Sodium Chloride (0.9 % Sodium Chloride Flush 3 Ml Syringe) 3 ml IVFLUSH QSHIFT [facility] Last Admin: 10/01/23 08:00 Dose: 3 ml Documented By: ÁNGEL Labs 10/01/23 05:27 10/01/23 05:27 Labs: Laboratory Results - last 24 hr 09/30/23 09/30/23 09/30/23 15:17 15:19 18:04 MCV 89.2 MCH 30.1 MCHC 33.8 RDW 14.5 Plt Count 168 MPV 11.5 Immature Gran % (Auto) 0.2 Neut % (Auto) 85.0 H Lymph % (Auto) 6.7 L Will % (Auto) 6.5 Eos % (Auto) 1.1 Baso % (Auto) 0.5 Lymph # (Auto) 0.6 L Will # (Auto) 0.6 Eos # (Auto) 0.1 Baso # (Auto) 0.0 Abs Immat Gran (auto) 0.02 Absolute Neuts (auto) 7.4 Absolute Nucleated RBC 0.000 Nucleated RBC % (auto) 0.0 PT 19.5 H D INR 1.6 H Anion Gap 13 Estim Creat Clear Calc 30.5 Estimated GFR 43 Random Glucose 109 Lactic Acid 1.1 Calcium 9.5 Total Bilirubin 0.6 Direct Bilirubin 0.3 AST 49 H ALT 29 Alkaline Phosphatase 87 Troponin I High Sens 83.1 H D 71.8 H B-Natriuretic Peptide 208 H Total Protein 7.6 Albumin 3.7 Lipase 15 Urine Color Urine Appearance Urine pH Ur Specific [place] Urine Protein Urine Glucose (UA) Urine Ketones Urine Blood Urine Nitrite Ur Leukocyte Esterase Urine RBC Urine WBC Ur Squamous Epith Cells Urine Bacteria Hyaline Casts Influenza Type A (PCR) NEGATIVE Influenza Type B (PCR) NEGATIVE RSV RNA Qual (PCR) NEGATIVE SARS-CoV-2 RNA (RT-PCR) NEGATIVE 09/30/23 10/01/23 19:19 05:27 MCV 89.6 MCH 29.8 MCHC 33.3 RDW 14.6 Plt Count 149 L MPV 11.4 Immature Gran % (Auto) Neut % (Auto) Lymph % (Auto) Will % (Auto) Eos % (Auto) Baso % (Auto) Lymph # (Auto) Will # (Auto) Eos # (Auto) Baso # (Auto) Abs Immat Gran (auto) Absolute Neuts (auto) Absolute Nucleated RBC 0.000 Nucleated RBC % (auto) 0.0 PT INR Anion Gap 15 Estim Creat Clear Calc 36.8 Estimated GFR 55 Random Glucose 80 Lactic Acid Calcium 8.9 D Total Bilirubin Direct Bilirubin AST ALT Alkaline Phosphatase Troponin I High Sens B-Natriuretic Peptide Total Protein Albumin Lipase Urine Color Yellow Urine Appearance Clear Urine pH 5.5 Ur Specific [place] 1.020 Urine Protein 30 (1+) H Urine Glucose (UA) Negative Urine Ketones Negative Urine Blood Negative Urine Nitrite Negative Ur Leukocyte Esterase Negative Urine RBC 0-2 Urine WBC 0-5 Ur Squamous Epith Cells 0-2 Urine Bacteria None Seen Hyaline Casts 3-5 Influenza Type A (PCR) Influenza Type B (PCR) RSV RNA Qual (PCR) SARS-CoV-2 RNA (RT-PCR) Assessment and Plan (1) Acute exacerbation of chronic obstructive airways disease: Status: Acute (2) Persistent atrial fibrillation: Status: Acute Plan 87-year-old male with a history of COPD and atrial fibrillation on Eliquis presents with worsening shortness of breath that initially began 2 weeks ago. Over the 48 hours prior to his admission he states he could not even walk across his apartment to use bathroom. In the emergency room now has an O2 requirement and responded to nebs and therapies he will be admitted for management of COPD exacerbation. 1. Acute exacerbation of COPD -ceftriaxone/doxycycline (2) -pulse dose methylprednisolone -DuoNebs q.4 hours as needed while awake -titrate O2 2. Persistent atrial fibrillation (V paced) -acceptable rate control via pacemaker -continue Eliquis b.i.d. 3. Primary hypertension -acceptable control on current therapies -adjust as indicated Full code Eliquis Patient will require at least 2 midnights of inpatient stay to treat acute exacerbation of COPD with antibiotics IV steroids DuoNebs and supplemental O2. This can not be achieved a lesser acute setting Quality Stroke Does the patient have a stroke diagnosis?: No VTE Prior VTE?: No VTE Risk Level:: Medical - moderate - high VTE Device Contraindication: Treatment Not Indicated VTE Drug Contraindication: N/A - Med Ordered
--- NOTE | 2023-10-01 14:17 | MHC.CM.PN ---
PATIENT IS FULLY INDEPENDENT HE USES HEARING AIDS, WHICH HE DOES NOT HAVE AT THIS TIME. HCP IS ON FILE AND VERIFED. HIS [id number] IS AN RN HERE AT [facility] [place]. SHE WILL PROVIDE TRANSPORTATION HOME. CURRENT PLAN IS FOR PULSE OXIMETERY AMBULATION TRIAL AND DC HOME MONDAY. IMM 09/30 IN CHART
[2023-10-01 15:25] VITALS: BP 118/56; PULSE 60; RESP 16; TEMP 36.2; O2SAT 95
[2023-10-01] MEDS: guaiFENesin 200 MG/10 ML 10 ML LIQUID PO ×2 (15:39→23:12)
[2023-10-01 18:08] VITALS: O2SAT 93
--- NOTE | 2023-10-01 18:08 | PC.NURSE ---
Patient was wearing 2L NC. This RN removed oxygen and placed patient on room air for 2hrs. O2 sat on room air 92%. Patient ambulated to the bathroom and back to bed. O2 sat 93% on room air.
[2023-10-01] MEDS: cefTRIAXone sodium 1 GM in 0.9 % Sodium Chloride 50 ML IV (18:15)
[2023-10-01] MEDS: Albuterol/Iprat 2.5/0.5MG 3 ML AMPUL.NEB INHALE (18:20)
[2023-10-01 20:00] VITALS: BP 124/60; PULSE 63; RESP 18; TEMP 36.2; O2SAT 93
[2023-10-02 03:42] VITALS: BP 105/55; PULSE 63; RESP 18; TEMP 36.3; O2SAT 93
[2023-10-02] MEDS: guaiFENesin 200 MG/10 ML 10 ML LIQUID PO ×2 (05:12→11:20)
[2023-10-02] MEDS: methylPREDNISolone Sod Succ 125 MG/2 ML VIAL 60 MG IVPUSH ×2 (05:14→11:20)
[2023-10-02] MEDS: Doxycycline Hyclate 100 MG in 0.9 % Sodium Chloride 250 ML 166.67 MG IV (05:18)
[2023-10-02 07:23] VITALS: BP 135/67; PULSE 61; RESP 16; TEMP 36.4; O2SAT 92
[2023-10-02 08:41] VITALS: BP 135/67; PULSE 61
[2023-10-02] MEDS: lisinopriL 10 MG TABLET PO (08:41)
[2023-10-02] MEDS: amLODIPine Besylate 5 MG TABLET PO (08:41)
[2023-10-02] MEDS: Apixaban 5 MG TABLET PO (08:41)
[2023-10-02] MEDS: Propranolol HCL LA 60 MG CAP.SA.24H PO (08:41)
[2023-10-02] MEDS: Atorvastatin Calcium 40 MG TABLET PO (08:41)
[2023-10-02] MEDS: hydroCHLOROthiazide 25 MG TABLET PO (08:41)
--- NOTE | 2023-10-02 11:56 | MHC.CM.PN ---
pt home self care
--- NOTE | 2023-10-02 12:20 | P.DS_ITS ---
DS: Providers Provider Date of Service: 10/02/23 Date of admission: 09/30/23 17:11 Primary care physician: dr Hsu DS: Diagnosis Discharge Diagnosis (1) Acute exacerbation of chronic obstructive airways disease: Status: Acute (2) Persistent atrial fibrillation: Status: Acute DS: Summary Hospital Course Hospital Course: History of presenting illness: Date of Service: 09/30/23 Chief Complaint: Shortness of breath 87-year-old male with a history of COPD recently admitted to [facility] for hypoxic respiratory failure and viral respiratory infection presents to [place] after daughter ambulated and found sats to be in the mid 80s. During [facility] hospitalization patient was noted to have episodes of V-tach for which AICD was placed without issue. This was in the backdrop of chronic atrial fibrillation on Eliquis. He states he went to [facility] for shortness of breath and essentially was not improved when he was discharged. He states he usually walks 2 miles a day however was unable to walk to the bathroom in his apartment. He presents today with COPD exacerbation for which he will be admitted. Hospital course: 87-year-old male with a history of COPD and atrial fibrillation on Eliquis presents with worsening shortness of breath that initially began 2 weeks ago. Over the 48 hours prior to his admission he states he could not even walk across his apartment to use bathroom. In the emergency room now has an O2 requirement and responded to nebs and therapies he will be admitted for management of COPD exacerbation. 1. Acute exacerbation of COPD, patient treated with IV steroids, updraft treatment and antibiotics patient responded well to above treatment currently oxygenating 92% on room air, chest x-ray showed no acute abnormality, patient is being discharged home on by mouth prednisone, cough medication, patient is not on home inhalers, recommend close outpatient follow-up with primary care physician. 2. Persistent atrial fibrillation (V paced) recommend to continue Eliquis and propranolol 3. Primary hypertension stable blood pressure, continue home medications. Time Attestation Discharge Coordination Time (in mins): 34 Quality: Safe Use of Opioids Does Pt have an Active Cancer Diagnosis on the Problem List?: No Quality: Stroke Does the patient have a stroke diagnosis?: No Physical Exam Vital Signs: Vital Signs: Last Vital Signs Temp 97.6 F 10/02/23 07:23 Pulse 61 10/02/23 08:41 Resp 16 10/02/23 07:23 BP 135/67 10/02/23 08:41 Pulse Ox 92 10/02/23 07:23 O2 Del Method Room Air 10/02/23 07:23 O2 Flow Rate 2 10/01/23 15:25 Oxygen Flow Rate 2 09/30/23 14:23 BMI result Body Mass Index 21.4 Const: Other: General awake alert x3, in no acute distress. Neck supple no JVD. CVS regular rate rhythm, Respiratory lungs clear to auscultation, no respiratory distress, no wheeze, no rhonchi. Gastrointestinal abdomen soft, non tender, bowel sounds audible Extremities no edema. Neuro non focal Skin no rash Psych appropriate affect DS: Data Data Completed and Pending Labs on day of discharge: Preliminary micro results at discharge 09/30/23 15:18 Blood Culture - Preliminary Blood - Venous No growth after 24 hours. 09/30/23 15:19 Blood Culture - Preliminary Blood - Venous No growth after 24 hours. Discharge Plan Discharge Anticipated Discharge Date/Time: 10/02/23 11:34 Patient Disposition: Home, Self-Care Discharge Diagnosis: Acute COPD exacerbation Persistent atrial fibrillation Referrals: dr Shadi [Other] - 1 Week Discharge Medications: New prednisone 10 mg tablet 10 mg PO DAILY Qty: 5 0RF dextromethorphan-guaifenesin 10-100 mg/5 mL Syrup 10 ml PO TID Qty: 237 0RF Rx Instructions: Take cough medication 3 times a day for 3 days and then use as needed for persistent cough Continued amlodipine-benazepril 5-10 mg capsule 1 cap PO DAILY hydrochlorothiazide 25 mg tablet 25 mg PO DAILY Eliquis 5 mg tablet 5 mg PO BID atorvastatin 40 mg tablet 40 mg PO DAILY propranolol 60 mg capsule,extended release 24 hr 60 mg PO DAILY acyclovir 200 mg capsule 200 mg PO 5XD PRN (Reason: herpes) Discontinued guaifenesin [Mucinex] 1,200 mg Tablet Extended Release 12hr 1,200 mg PO BID PRN (Reason: Congestion) Discharge Orders: Discharge Order (Routine); Ordered 10/02/23 Ordered By: Ksenia Spring Diet: Advance to usual diet Activity on Discharge: As tolerated Stand Alone Forms: Patient Portal Discharge page Print Language: Indonesian Care Plan Goals: Acute COPD exacerbation resolved Take cough medication for next 2-3 days scheduled and then as needed/cough may last for 2 weeks Health Concerns: Persistent atrial fibrillation continue home medication Plan of Treatment: Outpatient follow-up with primary care physician call for appointment Assessment: As above Discharge Date/Time: 10/02/23 12:14
== END 2023-10-02 12:14 | disposition home or self-care (01) | DRG 191 ==
LOC: HO.ED 16:16 → HO.EDOVER 17:18 → HO.S3 18:20
PROVIDERS: Admitting Provider Hospitalist; Emergency Provider Emergency Medicine; Visit Provider Hospitalist
DX: J44.1 Chronic obstructive pulmonary disease with (acute) exacerbation (principal); I48.19 Other persistent atrial fibrillation; I10 Essential (primary) hypertension; Z20.822 Contact with and (suspected) exposure to COVID-19; Z87.891 Personal history of nicotine dependence; Z95.810 Presence of automatic (implantable) cardiac defibrillator; Z79.01 Long term (current) use of anticoagulants; Z79.899 Other long term (current) drug therapy
CPT/HCPCS: 0241U; 36415; 71045; 80048; 80076; 81001; 83605; 83690; 83880; 84484; 85025; 85027; 85610; 87040; 93005; 94640; 99285; J0696; J2919; J3475; J7120

== ENCOUNTER → 2023-09-30 14:52 | Outpatient (BNV) | payer MEDICARE, SELFPAY | PROVIDERS: Admitting Provider Hospitalist; Emergency Provider Emergency Medicine; Visit Provider Internal Medicine | DX: R94.31 Abnormal electrocardiogram [ECG] [EKG] (principal) | CPT/HCPCS: 93010 ==

== ENCOUNTER → 2023-09-30 17:11 | Outpatient (BNV) | payer MEDICARE, SELFPAY | PROVIDERS: Admitting Provider Hospitalist; Emergency Provider Emergency Medicine; Visit Provider Hospitalist | DX: J44.1 Chronic obstructive pulmonary disease with (acute) exacerbation (principal); I48.19 Other persistent atrial fibrillation | CPT/HCPCS: 99223; 99233; 99239 ==